=== PATIENT | female | born 2000 | race Caucasian/White ===

== ENCOUNTER → 2022-11-15 15:37 | Outpatient (CLI) | payer BC, SELFPAY ==
--- NOTE | ~2022-11-15 | US_ITS ---
EXAMINATION: US breast BI limited HISTORY: Bilateral lumps in the upper outer quadrants of the breasts TECHNIQUE: Limited bilateral breast ultrasound is performed. FINDINGS: No sonographic correlate is identified for the reported palpable abnormality of the right b reast. There is a 5 mm x 2 mm oval, circumscribed, parallel, hypoechoic mass with no posterior featur es or internal vascularity at the 2:00 location 9 cm from the nipple in the left breast corresponding to the palpable abnormality of concern IMPRESSION: Probably benign mass of the left breast. Follow-up targeted left breast ultrasound six months is candido mmended. BI-RADS category 3, probably benign findings. Reviewed, dictated and finalized at location A. IMPRESSION: Probably benign mass of the left breast. Follow-up targeted left breast ultraso und six months is recommended. BI-RADS category 3, probably benign findings.
== END ==
PROVIDERS: PCP Family Medicine; Visit Provider Family Medicine
DX: N63.21 Unspecified lump in the left breast, upper outer quadrant (principal); N63.11 Unspecified lump in the right breast, upper outer quadrant
CPT/HCPCS: 76642

== ENCOUNTER → 2023-03-14 14:55 | Outpatient (CLI) | payer BC, SELFPAY ==
--- NOTE | ~2023-03-14 | US_ITS ---
EXAMINATION: US axilla BI INDICATION: Six-month follow-up for probably benign left breast mass. TECHNIQUE: Limited bilateral axillary ultrasound is performed. COMPARISON: 11/15/2022 FINDINGS: There are bilateral benign-appearing axillary lymph nodes. The previously described mass at the 2:00 location 9 cm from the nipple in the left breast now demonstrates sonographic features most consistent with an intramammary lymph node. No suspicious cystic or solid mass is identified. IMPRESSION: 1. Bilateral normal-appearing axillary lymph nodes and intramammary lymph node in the upper outer darcy drant of the left breast. BI-RADS Category 2: Benign finding(s). Reviewed, dictated and finalized at location F. WRITER IMPRESSION: 1. Bilateral normal-appearing axillary lymph nodes and intramammary lymph node in the upper outer quadrant of the left breast. BI-RADS Category 2: Benign finding(s).
== END ==
PROVIDERS: PCP Physician Assistant; Visit Provider Physician Assistant
DX: R22.30 Localized swelling, mass and lump, unspecified upper limb (principal); N63.20 Unspecified lump in the left breast, unspecified quadrant
CPT/HCPCS: 76882